=== PATIENT | female | born 1955 | race Caucasian/White ===

== ENCOUNTER 2017-03-09 12:09 | Emergency (ER) | payer BC, MEDICARE ==
[~2017-03-09] VITALS: Ht 175.3 cm; Wt 80.0 kg
[~2017-03-09 12:09] MED LIST: AMLO1CAP6 PO; GABA300C16 PO; OMEP20CA16 PO
[2017-03-09 12:11] VITALS: Ht 175.3 cm; Wt 80.0 kg
[2017-03-09] MEDS ORDERED: SOD CHLORIDE 0.9% 1,000 ML IV STA (12:13)
[2017-03-09] MEDS ORDERED: ONDANSETRON 4 MG INJ IV STA (12:13)
[2017-03-09] MEDS ORDERED: morphine 4 MG/ML VIAL IV STA (12:13)
[2017-03-09 13:24] LABS: ADD SCAN DIFF NO
--- NOTE | 2017-03-09 13:24 | RADRPT ---
PROCEDURE: CHEST 1VW CLINICAL INDICATION: Shortness of breath TECHNIQUE: Single frontal view of the chest was obtained COMPARISON: 08/16/2014 FINDINGS: The cardiac size is normal. Aortic vascular calcifications are demonstrated. There is minimal pulmonary vascular congestion. The lungs are clear. No consolidation, effusion, or pneumothorax. Mild degenerative changes of the visualized osseous structures are visualized. IMPRESSION: 1. Minimal pulmonary vascular congestion. 2. Atherosclerosis. RPTAT:PP .Dmitry Escalona MD, MD Date Time Electronically viewed and signed by .Dmitry Escalona MD, MD on 03/09/2017 13:23 .V/
[2017-03-09 13:25] LABS: BASOPHIL # 0.1 10^3/ul (0.0-0.1); BASOPHILS % 0.8 % (0.0-2.0); EOSINOPHILS # 0.1 10^3/ul (0.0-0.5); EOSINOPHILS % 0.9 % (0.0-7.0); HEMATOCRIT 34.9 % (37.0-47.0); HEMOGLOBIN 11.4 g/dl (12.0-16.0); LYMPHOCYTES # 2.6 10^3/ul (0.8-2.9); LYMPHOCYTES % 30.5 % (15.0-51.0); MEAN CORPUSCULAR HEMOGLOBIN 28.7 pg (29.0-33.0); MEAN CORPUSCULAR HGB CONC 32.7 g/dl (32.0-37.0); MEAN CORPUSCULAR VOLUME 87.9 fl (82.0-101.0); MEAN PLATELET VOLUME 10.3 fl (7.4-10.4); MONOCYTE # 0.6 10^3/ul (0.3-0.9); MONOCYTES % 6.6 % (0.0-11.0); NEUTROPHIL # 5.3 10^3/ul (1.6-7.5); PLATELET COUNT 369 10^3/UL (140-415); RED BLOOD COUNT 3.97 10^6/ul (4.20-5.40); RED CELL DISTRIBUTION WIDTH 13.1 % (11.5-14.5); WHITE BLOOD COUNT 8.7 10^3/ul (4.8-10.8)
[2017-03-09 13:51] LABS: ALBUMIN 4.6 g/dl (3.3-4.9); ALBUMIN/GLOBULIN RATIO 1.48; BILIRUBIN,INDIRECT 0.1 mg/dl (0-1.1); BILIRUBIN,TOTAL 0.1 mg/dl (0.2-1.3); CALCIUM 9.3 mg/dl (8.4-10.2); CREATININE 0.61 mg/dl (0.44-1.00); POTASSIUM 4.1 mmol/L (3.5-5.1); TOTAL PROTEIN 7.7 g/dl (6.1-8.1)
[2017-03-09] MEDS ORDERED: HYDR-902 PO (13:54)
[2017-03-09] MEDS ORDERED: SILV20CR13 TOP (13:54)
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
== END 2017-03-09 14:00 | disposition left against medical advice (07) ==
LOC: E/R 12:09
DX: T21.02XA Burn of unspecified degree of abdominal wall, initial encounter (principal); I10 Essential (primary) hypertension; V49.40XA Driver injured in collision with unspecified motor vehicles in traffic accident, initial encounter; X19.XXXA Contact with other heat and hot substances, initial encounter; Y92.9 Unspecified place or not applicable
CPT/HCPCS: 36415; 71010; 80053; 83690; 85025; 96374; 96375; 99284; J2270; J2405; J7030

== ENCOUNTER 2017-09-06 17:44 | Emergency (ER) | payer MEDICARE, BC ==
[~2017-09-06] VITALS: Ht 160 cm; Wt 84.2 kg
[~2017-09-06 17:44] MED LIST changes: +HYDR-902 PO; +SILV20CR13 TOP
[2017-09-06 17:48] VITALS: Ht 160 cm; Wt 84.2 kg
[2017-09-06] MEDS ORDERED: LIDOCAINE/MYLANTA 40 ML BTL PO STA (19:31)
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
[2017-09-06] MEDS ORDERED: FAMOTIDINE 20 MG INJ IV ONE (20:00)
--- NOTE | 2017-09-06 20:11 | RADRPT ---
PROCEDURE: XR Chest. CLINICAL INDICATION: Chest pain. TECHNIQUE: Single frontal view. COMPARISON: 03/09/2017. FINDINGS: The lungs are clear. The heart size is normal. There is calcification in the aorta consistent with atherosclerosis. There is no pleural effusion. There is no pneumothorax. IMPRESSION: 1. Atherosclerosis. 2. Otherwise unremarkable chest radiograph. RPTAT: QQ .Chito Nguyen MD, MD Date Time Electronically viewed and signed by .Chito Nguyen MD, MD on 09/06/2017 20:11 .R/
[2017-09-06 20:16] LABS: BASOPHIL # 0.1 10^3/ul (0.0-0.1); BASOPHILS % 0.9 % (0.0-2.0); EOSINOPHILS # 0.2 10^3/ul (0.0-0.5); EOSINOPHILS % 1.5 % (0.0-7.0); HEMATOCRIT 36.5 % (37.0-47.0); HEMOGLOBIN 11.9 g/dl (12.0-16.0); LYMPHOCYTES # 3.6 10^3/ul (0.8-2.9); LYMPHOCYTES % 35.7 % (15.0-51.0); MEAN CORPUSCULAR HEMOGLOBIN 28.4 pg (29.0-33.0); MEAN CORPUSCULAR HGB CONC 32.6 g/dl (32.0-37.0); MEAN CORPUSCULAR VOLUME 87.1 fl (82.0-101.0); MEAN PLATELET VOLUME 10.5 fl (7.4-10.4); MONOCYTE # 0.6 10^3/ul (0.3-0.9); MONOCYTES % 6.3 % (0.0-11.0); NEUTROPHIL # 5.6 10^3/ul (1.6-7.5); NEUTROPHILS % 55.3 % (39.0-77.0); PLATELET COUNT 393 10^3/UL (140-415); RED BLOOD COUNT 4.19 10^6/ul (4.20-5.40); RED CELL DISTRIBUTION WIDTH 13.8 % (11.5-14.5)
[2017-09-06 20:22] LABS: ALANINE AMINOTRANSFERASE 40 IU/L (13-69); ALBUMIN 4.5 g/dl (3.3-4.9); ALBUMIN/GLOBULIN RATIO 1.15; ALKALINE PHOSPHATASE 76 IU/L (42-121); ANION GAP 13 (8-16); ASPARTATE AMINO TRANSFERASE 37 IU/L (15-46); BILIRUBIN,INDIRECT 0.2 mg/dl (0-1.1); BILIRUBIN,TOTAL 0.2 mg/dl (0.2-1.3); BLOOD UREA NITROGEN 14 mg/dl (7-20); CALCIUM 9.8 mg/dl (8.4-10.2); CARBON DIOXIDE 32 mmol/L (21-31); CHLORIDE 101 mmol/L (97-110); CREATININE 0.66 mg/dl (0.44-1.00); GLUCOSE 109 mg/dl (70-220); POTASSIUM 4.4 mmol/L (3.5-5.1); SODIUM 142 mmol/L (135-144); TOTAL PROTEIN 8.4 g/dl (6.1-8.1)
[2017-09-06 20:34] LABS: TROPONIN-I < 0.012 ng/ml (0.00-0.12)
[2017-09-06 21:40] VITALS: BP 140/71; PULSE 75; RESP 19; TEMP 98.1
[2017-09-06] MEDS ORDERED: FAMO-96 PO (21:50)
== END 2017-09-06 21:59 | disposition home or self-care (01) ==
LOC: E/R 17:44
DX: K21.9 Gastro-esophageal reflux disease without esophagitis (principal); I10 Essential (primary) hypertension
CPT/HCPCS: 36415; 71010; 80053; 83690; 84484; 85025; 93005